=== PATIENT | male | born 1990 | race Caucasian/White ===

== ENCOUNTER 2021-05-15 23:36 | Emergency (ER) | payer OTHER, SELFPAY ==
[2021-05-15 23:56] VITALS: BP 141/78; PULSE 94; RESP 16; TEMP 36.8; O2SAT 97; BMI 33.0
--- NOTE | 2021-05-16 00:31 | PC.NURSE ---
Pt c/o RT jaw swelling and pain. Per pt, f/u with dentist 2-3 mo ago for RT lower dental cavities. Per pt, dentist put fillings but messed it up. Per pt, has been having intermittent pain to area since filling. 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 Pt taking tylenol and ibuprofen at home with some relief Denies any fevers/n/v Will continue to monitor
--- NOTE | 2021-05-16 00:32 | ED_ITS ---
HPI - Dental/Oral General Chief complaint: Dental/Oral Stated complaint: face swollen from dental surgery Time Seen by Provider: 05/16/21 00:32 Source: patient Mode of arrival: ambulatory Limitations: no limitations History of Present Illness HPI Narrative: Patient with chronic dental problems been followed dentist had feeling on the right lower molar 3 months ago since then patient has been having pain since yesterday noticed increased swelling and pain no fever no chills patient does have increased sensation to cold Related Data Previous Rx's Medication Instructions Recorded amoxicillin 875 mg-potassium 1 tab PO BID #20 tab 05/16/21 clavulanate 125 mg tablet (Augmentin) tramadol 50 mg tablet 50 mg PO Q6H PRN #20 tab 05/16/21 Allergies Allergy/AdvReac Type Severity Reaction Status Date / Time No Known Allergies Allergy Verified 05/15/21 23:56 Review of Systems Review of Systems: Yes all other systems are reviewed and are negative PMFSH Social History Social History Advance Directives: No Physical Exam Vital Signs: Vital Signs: Last Vital Signs Temp 98.2 F 05/15/21 23:56 Pulse 94 05/15/21 23:56 Resp 16 05/15/21 23:56 BP 141/78 H 05/15/21 23:56 Pulse Ox 97 05/15/21 23:56 BMI result Body Mass Index 33.0 Const: General: comfortable and no acute distress Orientation/consciousness: patient oriented x3 HENMT: Mouth: Normal oral and palatal mucosa present Teeth image: 1. Diffuse tenderness specially around tooth 30 no obvious cavity seen no bogginess in the gum Neck: Neck: Yes normal visual inspection Resp: Effort & Inspection: normal respiratory effort Auscultation: clear to auscultation bilaterally Cardio: Rate: regular rate Rhythm: regular rhythm Heart sounds: S1 no rmal heart sound present and S2 normal heart sound present Neuro: General: patient oriented x3 MDM - Dental/Oral MDM Narrative Medical decision making narrative: Patient with right lower molar caries with cellulitis clinically no abscess was palpable. Will discharge patient home on Augmentin advised to follow with dentist Discharge Plan Discharge Clinical Impression: Toothache Patient Disposition: Home, Self-Care Instructions: Toothache (ED) Additional Instructions: Take antibiotics as advised Pain medicine as advised Follow-up with dentist Report to the ER if increased swelling/fever/pain Prescriptions: New tramadol 50 mg tablet 50 mg PO Q6H PRN (Reason: pain) Qty: 20 RF: 0 amoxicillin-pot clavulanate [Augmentin] 875-125 mg tablet 1 tab PO BID Qty: 20 RF: 0
[2021-05-16] MEDS: oxyCODONE HCl Immed Release 5 MG TABLET 10 MG PO (01:00)
[2021-05-16] MEDS: Amoxicillin/Potassium Clav 875 MG TABLET PO (01:00)
--- NOTE | 2021-05-16 01:10 | PC.NURSE ---
Pt medicated per JUN Pt tolerating well No reactions noted Will continue to monitor
== END 2021-05-16 01:11 | disposition home or self-care (01) ==
PROVIDERS: Emergency Provider Internal Medicine
DX: K08.89 Other specified disorders of teeth and supporting structures (principal)
CPT/HCPCS: 99283